=== PATIENT | male | born 1990 | race Caucasian/White ===

== ENCOUNTER 2016-07-06 15:17 | Emergency (ER) | payer SELFPAY ==
--- NOTE | 2016-07-06 15:26 | ER Document Report ---
ED Medical Screen (RME) - General Stated Complaint: ARM PAIN Mode of Arrival: Ambulatory Information source: Patient Notes: Patient states that [place] Patient is currently wearing a sling in triage. Patient states that he called orthopedic offices and was told that the providers are only in the office on Fridays. Patient is requesting orthopedic follow-up as well as pain medication. hx: None I have greeted and performed a rapid initial assessment of this patient. A comprehensive ED assessment and evaluation of the patient, analysis of test results and completion of the medical decision making process will be conducted by additional ED providers. Physical Exam - Extremities General upper extremity: Tender - Right upper extremity
[2016-07-06] MEDS ORDERED: HYDROCODONE/ACETAMINOPHEN 5-325 MG TABLET PO ONE (16:13)
--- NOTE | 2016-07-06 17:11 | ER Document Report ---
ED General - General Chief Complaint: Arm Injury Stated Complaint: ARM PAIN Mode of Arrival: Ambulatory Information source: Patient Notes: 25-year-old male presents with complaints of right shoulder pain and diagnosis of the humeral fracture. Patient notes that he fell about one half weeks ago while he was in [place]. Patient was placed in a sling which he is currently wearing TRAVEL OUTSIDE OF THE [place] IN LAST 30 DAYS: No - HPI Onset: Last week Onset/Duration: Persistent Quality of pain: Achy Severity: Mild Pain Level: 1 Associated symptoms: Other Exacerbated by: Movement Relieved by: Denies Similar symptoms previously: Yes Recently seen / treated by doctor: Yes - Related Data Allergies/Adverse Reactions: No Known Allergies Allergy (Verified 07/06/16 15:25) Past Medical History - General Information source: Patient - Social History Smoking Status: Current Every Day Smoker Cigarette use (# per day): No Chew tobacco use (# tins/day): No Smoking Education Provided: No Frequency of alcohol use: None Drug Abuse: None Family History: Reviewed & Not Pertinent Patient has suicidal ideation: No Patient has homicidal ideation: No Renal/ Medical History: Denies: Hx Peritoneal Dialysis Review of Systems - Review of Systems Notes: REVIEW OF SYSTEMS: CONSTITUTIONAL : Denies fever, chills, or sweats. Denies recent illness. EENT: Denies eye, ear, throat, or mouth pain or symptoms. Denies nasal or sinus congestion or discharge. Denies throat, tongue, or mouth swelling or difficulty swallowing. CARDIOVASCULAR: Denies chest pain. Denies palpitations or racing or irregular heart beat. Denies ankle edema. RESPIRATORY: Denies cough, cold, or chest congestion. Denies shortness of breath, difficulty breathing, or wheezing. GASTROINTESTINAL: Denies abdominal pain or distention. Denies nausea, vomiting , or diarrhea. Denies blood in vomitus, stools, or per rectum. Denies black, tarry stools. Denies constipation. GENITOURINARY: Denies difficulty urinating, painful urination, burning, frequency, blood in urine, or discharge. MUSCULOSKELETAL: Right shoulder pain. SKIN: Denies rash, lesions or sores. HEMATOLOGIC : Denies easy bruising or bleeding. LYMPHATIC: Denies swollen, enlarged glands. NEUROLOGICAL: Denies confusion or altered mental status. Denies passing out or loss of consciousness. Denies dizziness or lightheadedness. Denies headache. Denies weakness or paralysis or loss of use of either side. Denies problems with gait or speech. Denies sensory loss, numbness, or tingling. Denies seizures. PSYCHIATRIC: Denies anxiety or stress. Denies depression, suicidal ideation, or homicidal ideation. ALL OTHER SYSTEMS REVIEWED AND NEGATIVE. Dictation was performed using [employer] voice recognition software PHYSICAL EXAMINATION: GENERAL: Well-appearing, well-nourished and in no acute distress. HEAD: Atraumatic, normocephalic. EYES: Pupils equal round and reactive to light, extraocular movements intact, sclera anicteric, conjunctiva are normal. ENT: Nares patent, oropharynx clear without exudates. Moist mucous membranes. NECK: Normal range of motion, supple without lymphadenopathy LUNGS: Breath sounds clear to auscultation bilaterally and equal. No wheezes rales or rhonchi. HEART: Regular rate and rhythm without murmurs ABDOMEN: Soft, nontender, nondistended abdomen. No guarding, no rebound. No masses appreciated. Musculoskeletal: Right upper extremity is in a sling, patient is able to rotate his shoulder but notes tenderness when he tries to abduct NEUROLOGICAL: Cranial nerves grossly intact. Normal speech, normal gait. Normal sensory, motor exams PSYCH: Normal mood, normal affect. SKIN: Warm, Dry, normal turgor, no rashes or lesions noted. Physical Exam - Vital signs Vitals: Temp Pulse Resp BP Pulse Ox 97.5 F 108 H 18 120/80 98 07/06/16 15:24 07/06/16 15:24 07/06/16 15:24 07/06/16 15:24 07/06/16 15:24 Course - Re-evaluation Re-evalutation: 07/07/16 00:20 X-rays consistent with a proximal humeral fracture, patient will be given orthopedic follow-up and pain control. Otherwise he is currently in a sling does not require any other intervention at this time. Patient has good sensation no neurological deficits After performing a Medical Screening Examination, I estimate there is LOW risk for INTRACRANIAL HEMORRHAGE, UNSTABLE SPINE FRACTURE, CENTRAL CORD SYNDROME, CAUDA EQUINA, THORACIC AORTIC DISSECTION, PNEUMOTHORAX, PERFORATED BOWEL, RUPTURED ABDOMINAL AORTIC ANEURYSM, ACUTE TENDON RUPTURE, COMPARTMENT SYNDROME, or OPEN FRACTURE, thus I consider the discharge disposition reasonable. Also, there is no evidence or peritonitis, sepsis, or toxicity. The patient and I have discussed the diagnosis and risks, and we agree with discharging home to follow-up with their primary doctor with the understanding that symptoms and presentations can change. We also discussed returning to the Emergency Department immediately if new or worsening symptoms occur. We have discussed the symptoms which are most concerning (e.g., bloody stool, fever, changing or worsening pain, vomiting) that necessitate immediate return. - Vital Signs Vital signs: Temp Pulse Resp BP Pulse Ox 97.5 F 70 14 120/79 98 07/06/16 15:24 07/06/16 17:19 07/06/16 17:19 07/06/16 17:19 07/06/16 17:19 - Diagnostic Test Radiology reviewed: Image reviewed, Reports reviewed - Report given to patient Discharge - Discharge Clinical Impression: Humeral fracture Qualifiers: Encounter type: initial encounter Humerus Location: proximal Fracture type: closed Fracture alignment: displaced Laterality: right Qualified Code(s): S42.291A - Other displaced fracture of upper end of right humerus, initial encounter for closed fracture Arm pain Qualifiers: Laterality: right Qualified Code(s): M79.601 - Pain in right arm Condition: Stable Disposition: HOME, SELF-CARE Instructions: Fracture Proximal Humerus Prescriptions: Oxycodone HCl/Acetaminophen [Percocet 5-325 mg Tablet] 1 - 2 tab PO Q4H PRN #25 tablet PRN Reason: Referrals: IOANA PÉREZ MD [ACTIVE STAFF] - Follow up in 3-5 days
[2016-07-06 17:20] VITALS: BP 120/79
== END 2016-07-06 17:19 | disposition home or self-care (01) ==
LOC: ER 15:17
DX: S42.291A Other displaced fracture of upper end of right humerus, initial encounter for closed fracture (principal); M79.601 Pain in right arm; W19.XXXA Unspecified fall, initial encounter
CPT/HCPCS: 99283